=== PATIENT | female | born 1940 | race Caucasian/White ===

== ENCOUNTER 2020-01-17 05:55 | Day surgery (SDC) | payer MEDICARE ==
[~2020-01-17] VITALS: Ht 157.5 cm; Wt 58.1 kg
--- NOTE | ~2020-01-17 | OP ---
PATIENT NAME: DAPHNE BLAS MEDICAL RECORD: [id number] :42 LOCATION:[facility] ADMISSION DATE: SURGEON: RE LEE DPM DATE OF OPERATION: 01/17/2020 PREOPERATIVE DIAGNOSIS: Left second digit contracture. POSTOPERATIVE DIAGNOSIS: Left second digit contracture. PROCEDURE: Left second digit amputation. ANESTHESIA: Local with general anesthesia. HEMOSTASIS: Left ankle tourniquet at 250 mmHg. PREOPERATIVE DETAILS: The patient was taken to the OR and placed on the operating table in a supine position followed by induction of general anesthesia and infiltration of local anesthetic, 10 cc around the second ray of the left foot, 1:1 mix of lidocaine and Marcaine plain. The left extremity was then prepped and draped in usual aseptic technique followed by exsanguination and inflation of tourniquet. A 15-blade was used to create 2 semi-elliptical incisions around the base of the second digit. The toe was then disarticulated. The wound was flushed. The deep tissue was reapproximated with 2-0 Vicryl, the subcutaneous tissue with 4-0 Rapide and the skin was closed with 4-0 Rapide in a subcuticular technique followed by Dermabond. Adaptic, 4 x 4 and Conform were used to dress the wound followed by Jerry wrap. Tourniquet was deflated. POSTOPERATIVE DETAILS: The patient tolerated the procedure well and left the OR with vital signs stable and vascular status at preoperative levels. The patient was transported to recovery per anesthesia in stable condition. TRANSINT:[id number] Voice Confirmation ID: [id number] DOCUMENT ID: [id number] RE LEE DPM CC: [id number] DICTATION DATE: 01/17/20899 THERMOSTAT MAKER: 01/17/20 1251 [facility] 01/17/20 [facility] [address] [place] [address]
[2020-01-17 06:21] LABS: HEMOGLOBIN 14.1 g/dL (12-16); MCH 28.7 pg (26.0-34.0); MCHC 32.8 g/dL (31.0-37.0); MCV 87.6 fL (80.0-100.0); RBC 4.91 10x6/uL (4.00-5.40); RDW 12.6 % (11.5-14.5); WBC 7.1 10x3/uL (4.8-10.8)
[2020-01-17 06:40] LABS: CALC OSMOLALITY 276 mosm/kg (275-300); CALCIUM 9.1 mg/dL (8.5-10.1); CHLORIDE - SERUM 99 mmol/L (98-107); CREATININE - SERUM 0.6 mg/dL (0.6-1.3); GLUCOSE 315 mg/dL (74-106); POTASSIUM - SERUM 3.7 mmol/L (3.5-5.1); SODIUM 133 mmol/L (136-145); UREA NITROGEN 10 mg/dL (7-18); eGFR NON AFRICAN AMERICAN > 90 mL/min (90-120)
[2020-01-17] MEDS ORDERED: ESTRACE2 MG PO (07:31)
[2020-01-17] MEDS ORDERED: FERROUS SULFAT325 MG PO (07:31)
[2020-01-17] MEDS ORDERED: GLIMEPIRIDE2 MG PO (07:31)
[2020-01-17] MEDS ORDERED: NORVASC10 MG PO (07:32)
[2020-01-17] MEDS ORDERED: TRAZODONE HCL150 MG PO (07:32)
[2020-01-17] MEDS ORDERED: LEXAPRO20 MG PO (07:32)
[2020-01-17] MEDS ORDERED: SINGULAIR10 MG PO (07:33)
[2020-01-17] MEDS ORDERED: LISINOPRIL40 MG PO (07:33)
[2020-01-17] MEDS ORDERED: PROTONIX40 MG PO (07:33)
[2020-01-17 07:36] VITALS: BP 138/74; Ht 157.5 cm; Wt 58.1 kg
--- NOTE | 2020-01-17 07:55 | NUR ---
0710-DR LEE AWARE OF NO ORDER FOR AN ANTIBIOTIC.
--- NOTE | 2020-01-17 07:56 | NUR ---
0710- PER WEB SITE DEVELOPER NURSE JESUS WILL LOOK AT PTS CHART BEFORE FURTHER ORDERS. NO NEW ORDERS AT THIS TIME.
--- NOTE | 2020-01-17 10:37 | NUR ---
1015 IV REMOVED AND INSTRUCTIONS GIVEN TO PT
== END 2020-01-17 10:25 | disposition home or self-care (01) ==
LOC: D.OPS 05:55 → D.PAN 07:00 → D.OPS 07:45 → D.PAN 07:55 → D.OPS 07:55
PROVIDERS: Anesthesiology; ATTEND Podiatrist
DX: M20.5X2 Other deformities of toe(s) (acquired), left foot (principal); I10 Essential (primary) hypertension; E11.9 Type 2 diabetes mellitus without complications; Z72.0 Tobacco use